=== PATIENT | male | born 1970 | race Hispanic/Latino ===

== ENCOUNTER 2017-10-27 10:38 | Emergency (ER) | payer MEDICARE, OTHER ==
[2017-10-27 10:39] VITALS: BMI 44.1
[2017-10-27 11:13] VITALS: BP 136/84; PULSE 75; RESP 16; TEMP 96.8; O2SAT 98
--- NOTE | 2017-10-27 11:59 | ED PDOC ---
Upper Extremity Pain/Injury Time Seen by Provider: 10/27/17 11:33 Chief Complaint (Nursing): Upper Extremity Problem/Injury Chief Complaint (Provider): Upper Extremity Problem/Injury History Per: Patient History/Exam Limitations: no limitations Onset/Duration Of Symptoms: Days Current Symptoms Are (Timing): Still Present Additional Complaint(s): Ruben is a 47 year old male who presents to the emergency department with right shoulder pain s/p slip and fall in the bathtub last night. Patient denies head injury, loss of consciousness or neck pain. PMD: Provider TBD Past Medical History Reviewed: Historical Data, Nursing Documentation, Vital Signs Vital Signs: Last Vital Signs Temp 96.8 F L 10/27/17 11:13 Pulse 75 10/27/17 11:13 Resp 16 10/27/17 11:13 BP 136/84 10/27/17 11:13 Pulse Ox 98 10/27/17 11:13 - Medical History PMH: Arthritis, Bipolar Disorder, CAD, Depression, Diabetes (type II), HTN, Hypercholesterolemia, Kidney Stones, Chronic Kidney Disease Denies: CHF, HIV - Surgical History Surgical History: Coronary Stent (x 1 stent 2008), Hernia Repair (x 2) - Family History Family History: States: Unknown Family Hx - Home Medications Home Medications: Ambulatory Orders Medication Instructions Recorded Albuterol HFA [Ventolin HFA 90 2 puff PO Q4 PRN 06/24/16 mcg/actuation (8 g)] Atorvastatin Calcium 80 mg PO HS 06/24/16 GlipiZIDE [Glucotrol] 10 mg PO BID 06/24/16 Isosorbide Mononitrate ER [Imdur 30 mg PO DAILY 06/24/16 ER] Metformin HCl [Glucophage] 1,000 mg PO BID 06/24/16 Metoprolol Succinate 100 mg PO DAILY 06/24/16 Montelukast [Singulair] 10 mg PO DAILY 06/24/16 Nitroglycerin [Nitrostat] 0.4 mg PO Q5MIN PRN 06/24/16 Pioglitazone [Actos] 30 mg PO DAILY 06/24/16 Pregabalin [Lyrica] 50 mg PO DAILY 06/24/16 Quetiapine Fumarate [Seroquel] 400 mg PO HS 06/24/16 SITagliptin [Januvia] 100 mg PO DAILY 06/24/16 Enalapril Maleate [Vasotec] 20 mg PO BID 06/25/16 Baclofen [Lioresal] 20 mg PO BID 08/29/16 Cholecalciferol [Vitamin D 1000 IU] 1,000 unit PO DAILY 08/29/16 Meloxicam [Mobic] 15 mg PO QPM 08/29/16 Nystatin [Nystop Topical Powder] 1 appl TOP DAILY 08/29/16 Potassium Gluconate 1 tab PO DAILY 08/29/16 Pregabalin [Lyrica] 100 mg PO HS 08/29/16 Tamsulosin [Flomax] 0.4 mg PO DAILY 08/29/16 amLODIPine [Norvasc] 10 mg PO DAILY 08/29/16 busPIRone [Buspar] 5 mg PO TID 08/29/16 hydrOXYzine Pamoate [Vistaril] 50 mg PO HS PRN 08/29/16 hydroCHLOROthiazide [Hydrodiuril] 25 mg PO DAILY 08/29/16 Albuterol HFA [Ventolin HFA 90 1 - 2 puff IH Q6 PRN #1 inhaler 10/04/16 mcg/actuation (8 g)] Methylprednisolone [Medrol Dosepak] 4 mg PO ASDIR #1 pkg 10/04/16 Promethazine HCl/Codeine 5 - 10 ml PO Q6 PRN #6 oz 10/04/16 [Prometh-Codein 6.25-10 mg/5 ml] levoFLOXacin [Levaquin] 500 mg PO DAILY #10 tab 10/04/16 Ibuprofen [Motrin] 600 mg PO Q6H PRN #20 tab 10/27/17 - Allergies Allergies/Adverse Reactions: Allergies Allergy/AdvReac Type Severity Reaction Status Date / Time No Known Allergies Allergy Verified 08/24/15 09:15 Review of Systems ROS Statement: Except As Marked, All Systems Reviewed And Found Negative Musculoskeletal: Positive for: Other (Right Shoulder Pain). Negative for: Neck Pain Neurological: Negative for: Other (Loss of consciousness) Physical Exam - Reviewed Nursing Documentation Reviewed: Yes Vital Signs Reviewed: Yes - Physical Exam Appears: Positive for: Non-toxic, No Acute Distress Head Exam: Positive for: ATRAUMATIC, NORMAL INSPECTION, NORMOCEPHALIC Skin: Positive for: Normal Color Eye Exam: Positive for: Normal appearance ENT: Positive for: Normal ENT Inspection Neck: Positive for: Normal Cardiovascular/Chest: Positive for: Regular Rate, Rhythm Respiratory: Positive for: Normal Breath Sounds (Lungs clear). Negative for: Respiratory Distress Pulses-Radial (R): 2+ Back: Negative for: Other (C-Spine Tenderness) Extremity: Positive for: Tenderness (Right Lateral Clavicle and anterior and superior right shoulder). Negative for: Normal ROM ((+): Decreased ROM secondary to pain), Deformity Neurologic/Psych: Positive for: Alert, Oriented (x 3), Other (Sensations intact , muscle strength 5/5) - ECG O2 Sat by Pulse Oximetry: 98 (RA) Pulse Ox Interpretation: Normal Medical Decision Making Medical Decision Making: Time: 11:49 Plan: - Ultram 50 mg PO STAT - Right Clavicle X-Ray - Right Shoulder X-Ray Accession No. : [id number] Patient Name / ID : WANDA KHAN V / [id number] Exam Date : 10/27/2017 12:13:32 ( Approved ) Study Comment : Sex / Age : M / 47Y Creator : Hoang Smith MD Dictator : Hoang Smith MD Harvest Field Ticketer : Groundskeeper Supervisor : Hoang Smith MD Approver2 : Report Date : 10/27/2017 13:58:43 My Comment : PROCEDURE: Radiographs of the right clavicle. HISTORY: Fall COMPARISON: None. FINDINGS: RIGHT CLAVICLE: No fracture or focal lesion. JOINTS: Right acromioclavicular and glenohumeral joints are grossly unremarkable. SOFT TISSUES: Grossly unremarkable. OTHER FINDINGS: None. IMPRESSION: Normal radiographs of the right clavicle. Concordant results with the preliminary interpretation rendered by the emergency department physician\PA at the conclusion of the procedure. Accession No. : [id number] Patient Name / ID : WANDA KHAN V / [id number] Exam Date : 10/27/2017 12:13:32 ( Approved ) Study Comment : Sex / Age : M / 47Y Creator : Hoang Smith MD Dictator : Hoang Smith MD Harvest Field Ticketer : Groundskeeper Supervisor : Hoang Smith MD Approver2 : Report Date : 10/27/2017 13:59:07 My Comment : PROCEDURE: Radiographs of the Right Shoulder HISTORY: Fall COMPARISON: No prior. FINDINGS: BONES: Normal. No fracture. JOINTS: Normal. Glenohumeral and acromioclavicular joints preserved. No osteoarthritis. SOFT TISSUES: Normal. OTHER FINDINGS: None. IMPRESSION: Normal radiographs of the right shoulder. Concordant results with the preliminary interpretation rendered by the emergency department physician\PA at the conclusion of the procedure. Scribe Attestation: Documented by Jaime Flores, acting as a scribe for Mica Wilde MD. Provider Scribe Attestation: All medical record entries made by the Scribe were at my direction and personally dictated by me. I have reviewed the chart and agree that the record accurately reflects my personal performance of the history, physical exam, medical decision making, and the department course for this patient. I have also personally directed, reviewed, and agree with the discharge instructions and disposition. Disposition - Clinical Impression Clinical Impression: Shoulder contusion - Disposition Disposition: Routine/Home Disposition Time: 13:57 Condition: STABLE Additional Instructions: FOLLOW-UP WITH PMD WITHIN 2 DAYS FOR REEVALUATION. Prescriptions: Ibuprofen [Motrin] 600 mg PO Q6H PRN #20 tab PRN Reason: Pain, Moderate (4-7) Instructions: Shoulder Pain (ED) Forms: [facility] (Serbian)
--- NOTE | 2017-10-27 14:00 | RAD ---
PROCEDURE: Radiographs of the right clavicle. HISTORY: Fall COMPARISON: None. FINDINGS: RIGHT CLAVICLE: No fracture or focal lesion. JOINTS: Right acromioclavicular and glenohumeral joints are grossly unremarkable. SOFT TISSUES: Grossly unremarkable. OTHER FINDINGS: None. IMPRESSION: Normal radiographs of the right clavicle. Concordant results with the preliminary interpretation rendered by the emergency department physician procedure.
--- NOTE | 2017-10-27 14:00 | RAD ---
PROCEDURE: Radiographs of the Right Shoulder HISTORY: Fall COMPARISON: No prior. FINDINGS: BONES: Normal. No fracture. JOINTS: Normal. Glenohumeral and acromioclavicular joints preserved. No osteoarthritis. SOFT TISSUES: Normal. OTHER FINDINGS: None. IMPRESSION: Normal radiographs of the right shoulder. Concordant results with the preliminary interpretation rendered by the emergency department physician procedure.
[2017-10-27] MEDS ORDERED: Absorbable Gelatin Sponge Size 12-7 ONE (18:03)
== END 2017-10-27 14:11 | disposition home or self-care (01) ==
LOC: H.ER 10:38
DX: S40.012A Contusion of left shoulder, initial encounter (principal); W19.XXXA Unspecified fall, initial encounter; Y92.002 Bathroom of unspecified non-institutional (private) residence as the place of occurrence of the external cause; E11.22 Type 2 diabetes mellitus with diabetic chronic kidney disease; Z79.84 Long term (current) use of oral hypoglycemic drugs

== ENCOUNTER 2017-12-19 02:58 | Observation (INO) | payer MEDICARE, OTHER ==
[2017-12-19 02:58] VITALS: BMI 44.1
[2017-12-19 04:21] LABS: BASO # 0.1 K/uL (0.0-0.2); BASO % 1.4 % (0.0-2.0); EOS # 0.2 K/uL (0.0-0.7); EOS % 3.4 % (0.0-4.0); HEMOGLOBIN 14.5 g/dL (12.0-18.0); LYMPH # 1.7 K/uL (1.0-4.3); LYMPH % 25.1 % (20.0-40.0); MEAN CELL VOLUME 88.9 fl (80.0-94.0); MEAN CORPUSCULAR HEMOGLOBIN 31.4 pg (27.0-31.0); MEAN CORPUSCULAR HGB CONC 35.4 g/dL (33.0-37.0); MEAN PLATELET VOLUME 8.4 fl (7.2-11.7); MONO # 0.5 K/uL (0.0-0.8); MONO % 7.6 % (0.0-10.0); NEUT # 4.3 K/uL (1.8-7.0); NEUT % 62.5 % (50.0-75.0); NRBC % 0.1 % (0.0-0.0); RBC 4.61 Mil/uL (4.40-5.90); RED CELL DISTRIBUTION WIDTH 16.4 % (11.5-14.5); WHITE BLOOD COUNT 6.8 K/uL (4.8-10.8)
[2017-12-19 04:32] LABS: BLOOD UREA NITROGEN 17 mg/dl (9-20); CALCIUM 8.9 mg/dL (8.4-10.2); GFR AFRICAN-AMERICAN > 60; GFR NON-AFRICAN AMERICAN > 60
--- NOTE | 2017-12-19 04:59 | ED PDOC ---
HPI: General Adult Time Seen by Provider: 12/19/17 03:25 Chief Complaint (Nursing): Chest Pain Chief Complaint (Provider): chest pain and abdominal pain History Per: Patient History/Exam Limitations: no limitations Onset/Duration Of Symptoms: Days (couple) Current Symptoms Are (Timing): Constant Additional Complaint(s): 47 year old male presents to the ED complaining of chest pain and abdominal pain onset couple of days ago. Reports he has constant right lower quadrant pain and right lower back pain and felt no relief with Advil or Tylenol. He walked to the ED and felt chest pain but it resolved after rest. Still has right lower abdominal pain and back pain. Denies fever or diarrhea. ASA given in the field by EMS> PMD: Provider TBD Past Medical History Reviewed: Historical Data, Nursing Documentation, Vital Signs Vital Signs: Last Vital Signs Temp 97.7 F 12/19/17 07:38 Pulse 87 12/19/17 07:38 Resp 16 12/19/17 07:38 BP 128/71 12/19/17 07:38 Pulse Ox 100 12/19/17 07:38 - Medical History PMH: Arthritis, Bipolar Disorder, CAD, Depression, Diabetes (type II), HTN, Hypercholesterolemia, Kidney Stones, Chronic Kidney Disease Denies: CHF, HIV - Surgical History Surgical History: Coronary Stent (x 1 stent 2008), Hernia Repair (x 2) - Family History Family History: States: Unknown Family Hx - Home Medications Home Medications: Ambulatory Orders Medication Instructions Recorded Allopurinol [Zyloprim] 100 mg PO DAILY 12/19/17 Atorvastatin [Lipitor] 80 mg PO HS 12/19/17 Canagliflozin [Invokana] 100 mg PO DAILY 12/19/17 Enalapril Maleate [Vasotec] 20 mg PO BID 12/19/17 Glipizide [Glucotrol] 10 mg PO BID 12/19/17 Isosorbide Mononitrate ER [Imdur 0.5 mg PO DAILY 12/19/17 ER] Metformin HCl [Glucophage] 1,000 mg PO BID 12/19/17 Metoprolol Succinate [Toprol Xl] 100 mg PO DAILY 12/19/17 Pioglitazone [Actos] 30 mg PO DAILY 12/19/17 Potassium Citrate [Urocit-K ER Tab] 2 tab PO TID 12/19/17 Pregabalin [Lyrica] 50 mg PO DAILY 12/19/17 Pregabalin [Lyrica] 100 mg PO HS 12/19/17 Quetiapine Fumarate [Seroquel] 300 mg PO HS 12/19/17 SITagliptin [Januvia] 100 mg PO DAILY 12/19/17 Tamsulosin HCl [Flomax] 0.4 mg PO DAILY 12/19/17 amLODIPine [Norvasc] 10 mg PO DAILY 12/19/17 busPIRone [Buspar] 5 mg PO TID 12/19/17 hydroCHLOROthiazide [Hydrodiuril] 25 mg PO DAILY 12/19/17 - Allergies Allergies/Adverse Reactions: Allergies Allergy/AdvReac Type Severity Reaction Status Date / Time No Known Allergies Allergy Verified 12/19/17 03:08 Review of Systems ROS Statement: Except As Marked, All Systems Reviewed And Found Negative Constitutional: Negative for: Fever Cardiovascular: Positive for: Chest Pain Gastrointestinal: Positive for: Abdominal Pain (right lower quadrant). Negative for: Diarrhea Musculoskeletal: Positive for: Back Pain (right lower) Physical Exam - Reviewed Nursing Documentation Reviewed: Yes Vital Signs Reviewed: Yes - Physical Exam Appears: Positive for: Well, Non-toxic, No Acute Distress Head Exam: Positive for: ATRAUMATIC, NORMAL INSPECTION, NORMOCEPHALIC Skin: Positive for: Normal Color, Warm, Dry Eye Exam: Positive for: EOMI, Normal appearance, PERRL ENT: Positive for: Normal ENT Inspection Neck: Positive for: Normal, Painless ROM, Supple. Negative for: Decreased ROM Cardiovascular/Chest: Positive for: Regular Rate, Rhythm. Negative for: Murmur Respiratory: Positive for: Normal Breath Sounds. Negative for: Decreased Breath Sounds, Accessory Muscle Use, Respiratory Distress Gastrointestinal/Abdominal: Positive for: Soft, Tenderness (right lower quadrant ) Extremity: Positive for: Tenderness (right leg), Other (right lower back pain) Neurologic/Psych: Positive for: Alert, Oriented (x3). Negative for: Motor/ Sensory Deficits - Laboratory Results Result Diagrams: 12/19/17 04:18 12/19/17 04:18 - ECG ECG: Positive for: Interpreted By Me, Viewed By Me ECG Rhythm: Positive for: Normal QRS, Normal ST Segment, Sinus Rhythm. Negative for: ST/T Changes Rate: 87 O2 Sat by Pulse Oximetry: 96 (RA) Pulse Ox Interpretation: Normal Medical Decision Making Medical Decision Making: Time: 358 Initial Impression: Abdominal pain, Back pain, Chest pain Differential Diagnosis includes but is not limited to: Appendicitis, Kidney stone, Lumbar arthropathy, Acute coronary syndrome Initial Plan: --Abdomen & Pelvis CT --EKG --BMP --Troponin I --CBC w/ differential --Glucose, POC --Flexeril 10mg PO --Toradol 30mg --cash register repairer --Reevaluation Time: 613 EXAM: CT Abdomen and Pelvis With Intravenous Contrast FINDINGS: Limitations: Lack of intravenous contrast. Lung bases: Unremarkable. No mass. No consolidation. Heart: Small pericardial effusion, stable. Mild coronary artery calcifications. ABDOMEN: Liver: Fatty infiltration. Gallbladder and bile ducts: No calcified stones. No ductal dilation. Pancreas: No ductal dilation. No mass. Spleen: No splenomegaly. Adrenals: No mass. Kidneys and ureters: Mild stranding about kidneys, nonspecific. Few too small to characterize lesions within kidneys. No hydronephrosis. Stomach and bowel: Gastric banding. No definite mural thickening. No obstruction. Appendix: Normal caliber. No inflammation. PELVIS: Bladder: Unremarkable. Reproductive: Unremarkable as visualized. ABDOMEN and PELVIS: Intraperitoneal space: No significant fluid collection. No free air. Bones/joints: Chronic L5 pars defects with anterolisthesis. Degenerative changes of spine. No acute fracture. Soft tissues: Small LEFT inguinal hernia containing fat. Tiny umbilical hernia containing fat. Small paraumbilical hernia containing fat. Vasculature: Unremarkable. No aneurysm. Lymph nodes: No pathologically enlarged lymph nodes. IMPRESSION: 1. No definite acute intraabdominal abnormality. 2. Incidental/non-acute findings are described above. Scribe Attestation: Documented by Obed Carranza, acting as a scribe for Lana Espana MD Provider Scribe Attestation: All medical record entries made by the Scribe were at my direction and personally dictated by me. I have reviewed the chart and agree that the record accurately reflects my personal performance of the history, physical exam, medical decision making, and the department course for this patient. I have also personally directed, reviewed, and agree with the discharge instructions and disposition. Disposition - Clinical Impression Clinical Impression: Chest pain, Abdominal pain - Patient ED Disposition Is Patient to be Admitted: Yes Discussed With DrBibi: Geovanni Lino Doctor Will See Patient In The: Hospital Counseled Patient/Family Regarding: Studies Performed, Diagnosis - Disposition Disposition Time: 06:30 Condition: FAIR - Pt Status Changed To: Hospital Disposition Of: Observation - POA Present On Arrival: Poor Glycemic Control DANIELLE Risk Score for UA/NSTEMI - DANIELLE Risk Score Age > 64: NO 3 or more CAD Risk Factors: YES Known CAD (Stenosis greater than 50%): YES Aspirin use in past 7 days: NO Severe Angina: NO EKG ST changes greater than 0.5mm: NO Positive Cardiac Marker: NO DANIELLE Score: 2 % risk at 14 days of: all cause mortality, new or recurrent UT, or severe recurrent ischemia requiring urgen revascularization: 8%
[2017-12-19] MEDS ORDERED: Sodium Chloride 0.9% 100 ML ONE (05:11)
[2017-12-19] MEDS ORDERED: Iohexol 300 100 ML IJ ONE (05:11)
--- NOTE | 2017-12-19 06:15 | CT ---
EXAM: CT Abdomen and Pelvis With Intravenous Contrast CLINICAL HISTORY: 47 years old, male; Pain; Abdominal pain; Localized; Right lower quadrant (rlq); Prior surgery; Surgery date: 6+ months; Surgery type: Gastric surgery; Additional info: Rlq pain right flank pain TECHNIQUE: Axial computed tomography images of the abdomen and pelvis with intravenous contrast. All CT scans at this facility use one or more dose reduction techniques, viz.: automated exposure control; ma/kV adjustment per patient size (including targeted exams where dose is matched to indication; i.e. head); or iterative reconstruction technique. Coronal and sagittal reformatted images were created and reviewed. CONTRAST: 90 mL of [id number] administered intravenously. COMPARISON: CT - ABD PELVIS PO CONTRAST ONLY 2016-08-29 12:42 FINDINGS: Limitations: Lack of intravenous contrast. Lung bases: Unremarkable. No mass. No consolidation. Heart: Small pericardial effusion, stable. Mild coronary artery calcifications. ABDOMEN: Liver: Fatty infiltration. Gallbladder and bile ducts: No calcified stones. No ductal dilation. Pancreas: No ductal dilation. No mass. Spleen: No splenomegaly. Adrenals: No mass. Kidneys and ureters: Mild stranding about kidneys, nonspecific. Few too small to characterize lesions within kidneys. No hydronephrosis. Stomach and bowel: Gastric banding. No definite mural thickening. No obstruction. Appendix: Normal caliber. No inflammation. PELVIS: Bladder: Unremarkable. Reproductive: Unremarkable as visualized. ABDOMEN and PELVIS: Intraperitoneal space: No significant fluid collection. No free air. Bones/joints: Chronic L5 pars defects with anterolisthesis. Degenerative changes of spine. No acute fracture. Soft tissues: Small LEFT inguinal hernia containing fat. Tiny umbilical hernia containing fat. Small paraumbilical hernia containing fat. Vasculature: Unremarkable. No aneurysm. Lymph nodes: No pathologically enlarged lymph nodes. IMPRESSION: 1. No definite acute intraabdominal abnormality. 2. Incidental/non-acute findings are described above.
--- NOTE | 2017-12-19 14:24 | CP.PCM.HP ---
History of Present Illness - History of Present Illness History of Present Illness: This is a 47 y/o male with hx of HTN , hyperlipidemia , uncontrolled DM 2, obesity and CAD with stent placed in 2008, was admitted due to chest pain for the past few days which has worsened yesterday. He claims that in ned past few days he had been having on and off abdominal pains. He claims to have associated mild SOB, Has no fever Has no vomiting or diarrhea. Has no dizziness Medical Hx DM 2 HTn CAD hyperlipidemia bipolar disorder obesity he is currently on a lot of medications. Present on Admission - Present on Admission Any Indicators Present on Admission: No History of DVT/PE: No History of Uncontrolled Diabetes: Yes Urinary Catheter: No Decubitus Ulcer Present: No Review of Systems - Cardiovascular Cardiovascular: Chest Pain - Gastrointestinal Gastrointestinal: Abdominal Pain - Endocrine Endocrine: Polydipsia, Polyphagia, Polyuria Past Patient History - Infectious Disease Hx of Infectious Diseases: None - Past Medical History & Family History Past Medical History?: Yes - Past Social History Smoking Status: Never Smoked - CARDIAC Hx Congestive Heart Failure: No Hx Hypercholesterolemia: Yes Hx Hypertension: Yes - PULMONARY Hx Respiratory Disorders: No - NEUROLOGICAL Hx Neurological Disorder: No - HEENT Hx HEENT Problems: No - RENAL Hx Chronic Kidney Disease: Yes Hx Kidney Stones: Yes - ENDOCRINE/METABOLIC Hx Endocrine Disorders: Yes Hx Diabetes Mellitus Type 2: Yes - HEMATOLOGICAL/ONCOLOGICAL Hx Human Immunodeficiency Virus (HIV): No - INTEGUMENTARY Hx Dermatological Problems: No - MUSCULOSKELETAL/RHEUMATOLOGICAL Hx Arthritis: Yes - GASTROINTESTINAL Hx Gastrointestinal Disorders: No - GENITOURINARY/GYNECOLOGICAL Hx Genitourinary Disorders: No - PSYCHIATRIC Hx Bipolar Disorder: Yes Hx Depression: Yes - SURGICAL HISTORY Hx Coronary Stent: Yes (x 1 stent 2008) - ANESTHESIA Hx Anesthesia: Yes Hx Anesthesia Reactions: No Hx Malignant Hyperthermia: No Meds Allergies/Adverse Reactions: Allergies Allergy/AdvReac Type Severity Reaction Status Date / Time No Known Allergies Allergy Verified 12/19/17 03:08 Physical Exam - Head Exam Head Exam: NORMAL INSPECTION - ENT Exam ENT Exam: Mucous Membranes Moist - Respiratory Exam Respiratory Exam: Clear to Auscultation Bilateral - Cardiovascular Exam Cardiovascular Exam: REGULAR RHYTHM - GI/Abdominal Exam GI & Abdominal Exam: Soft, Tenderness - Neurological Exam Neurological exam: CN II-XII Intact, Oriented x3 Results - Vital Signs Recent Vital Signs: Last Vital Signs Temp 97.7 F 12/19/17 07:38 Pulse 87 12/19/17 14:01 Resp 16 12/19/17 07:38 BP 128/71 12/19/17 07:38 Pulse Ox 96 12/19/17 14:01 - Labs Result Diagrams: 12/19/17 04:18 12/19/17 04:18 Labs: Laboratory Results - last 24 hr 12/19/17 12/19/17 12/19/17 04:11 04:18 04:18 WBC 6.8 RBC 4.61 Hgb 14.5 Hct 40.9 MCV 88.9 D MCH 31.4 H MCHC 35.4 RDW 16.4 H Plt Count 209 MPV 8.4 Neut % (Auto) 62.5 Lymph % (Auto) 25.1 [place] % (Auto) 7.6 Eos % (Auto) 3.4 Baso % (Auto) 1.4 Neut # (Auto) 4.3 Lymph # (Auto) 1.7 [place] # (Auto) 0.5 Eos # (Auto) 0.2 Baso # (Auto) 0.1 Sodium 141 Potassium 4.0 Chloride 104 Carbon Dioxide 22 Anion Gap 19 BUN 17 Creatinine 1.2 Est GFR ( Amer) > 60 Est GFR (Non-Af Amer) > 60 POC Glucose (mg/dL) 334 H Random Glucose 334 H Calcium 8.9 Troponin I < 0.0120 12/19/17 08:26 WBC RBC Hgb Hct MCV MCH MCHC RDW Plt Count MPV Neut % (Auto) Lymph % (Auto) [place] % (Auto) Eos % (Auto) Baso % (Auto) Neut # (Auto) Lymph # (Auto) [place] # (Auto) Eos # (Auto) Baso # (Auto) Sodium Potassium Chloride Carbon Dioxide Anion Gap BUN Creatinine Est GFR ( Amer) Est GFR (Non-Af Amer) POC Glucose (mg/dL) 212 H Random Glucose Calcium Troponin I Assessment & Plan (1) Chest pain Status: Acute (2) Gastritis and duodenitis Status: Acute (3) Bipolar disorder Status: Chronic (4) Hypertension Status: Chronic (5) Morbid obesity Status: Chronic (6) Non-insulin dependent type 2 diabetes mellitus Status: Chronic - Assessment and Plan (Free Text) Plan: troponon q 8 cardiology eval check echo protonix cont all po meds but Dc thiazide and pioglitazone check labs check lipids tsh in am. Had a recent a1c which was more than 9.
[2017-12-19] MEDS ORDERED: Dextrose 50% SYRINGE Inj (50 ml) IV PRN (14:33)
[2017-12-19] MEDS ORDERED: Glucagon Recombinant 1 mg Inj IM PRN (14:33)
[2017-12-19 17:07] LABS: INR 1.1 (0.9-1.2); PROTHROMBIN TIME 12.4 Seconds (9.8-13.1)
[2017-12-19] MEDS: Pantoprazole 40 mg EC Tab PO SCH (17:16)
[2017-12-19 17:20] LABS: BARBITURATES, UR NEGATIVE (NEGATIVE); BENZODIAZEPINES, UR NEGATIVE (NEGATIVE); OPIATES, UR NEGATIVE (NEGATIVE); PHENCYCLIDINE, UR NEGATIVE (NEGATIVE)
--- NOTE | 2017-12-19 18:59 | CARD ---
APPROVED REPORT EXAM: Two-dimensional and M-mode echocardiogram with Doppler and color Doppler. Other Information Quality : AverageRhythm : NSR INDICATION Chest Pain 2D DIMENSIONS IVSd1.74 (0.7-1.1cm)LVDd3.54 (3.9-5.9cm) LVOT Diameter2.02 (1.8-2.4cm)PWd1.26 (0.7-1.1cm) IVSs1.85 (0.8-1.2cm)LVDs2.91 (2.5-4.0cm) FS (%) 17.8 %PWs1.53 (0.8-1.2cm) LVEF (%)55.0 (>50%) M-Mode DIMENSIONS Left Atrium (MM)4.00 (2.5-4.0cm)IVSd1.49 (0.7-1.1cm) Aortic Root2.68 (2.2-3.7cm)LVDd4.57 (4.0-5.6cm) Aortic Cusp Exc.1.92 (1.5-2.0cm)PWd1.36 (0.7-1.1cm) IVSs1.99 cmFS (%) 49 % LVDs2.32 (2.0-3.8cm)PWs1.85 cm Mitral Valve MV E Kdpxvqkl24.2cm/sMV DECEL [id number] A Awyxzwuu42.0cm/s MV GQN85btY/A ratio1.1MVA (PHT)3.55cm2 TDI E/Lateral E'0.0E/Medial E'0.0 Pulmonary Valve PV Peak Xpwdbrze468.1cm/s LEFT VENTRICLE The left ventricle is normal size. There is mild to moderate concentric left ventricular hypertrophy. The left ventricular function is normal. The left ventricular ejection fraction is within the normal range. There is normal LV segmental wall motion. Transmitral Doppler flow pattern is Grade I-abnormal relaxation pattern. RIGHT VENTRICLE The right ventricle is normal size. There is normal right ventricular wall thickness. The right ventricular systolic function is normal. ATRIA The left atrium size is normal. The right atrium size is normal. AORTIC VALVE The aortic valve is not well visualized. No aortic regurgitation is present. There is no aortic valvular stenosis. MITRAL VALVE The mitral valve is not well visualized. There is no mitral valve stenosis. There is no mitral valve regurgitation noted. TRICUSPID VALVE The tricuspid valve is normal in structure. There is no tricuspid valve regurgitation noted. PULMONIC VALVE The pulmonary valve is normal in structure. There is no pulmonic valvular regurgitation. GREAT VESSELS The aortic root is normal in size. The IVC was not visualized. PERICARDIAL EFFUSION The pericardium appears normal. <Conclusion> Poor Echo window There is mild to moderate concentric left ventricular hypertrophy. The left ventricular function is normal. The left ventricular ejection fraction is within the normal range. There is normal LV segmental wall motion. Transmitral Doppler flow pattern is Grade I-abnormal relaxation pattern.
--- NOTE | 2017-12-19 20:25 | CARD ---
APPROVED REPORT EKG Measurement Heart [id number] FL [id number] <Conclusion> Sinus tachycardia Possible Left atrial enlargement Right superior axis deviation Abnormal ECG
--- NOTE | 2017-12-20 00:13 | CON ---
DATE: CARDIOLOGY CONSULTATION REASON FOR CONSULTATION: Chest pain. HISTORY OF PRESENT ILLNESS: The patient is a 47-year-old male, who has a history of hypertension, diabetes mellitus, has a history of coronary artery disease underwent coronary stenting in [facility] in 2008, presents because of chest discomfort. The patient describe his chest pain has tightness, nonradiating. The patient also reported to the Emergency Room team of abdominal pain prior to his chest discomfort involving the right lower quadrant with right lower back pain. The patient's chest pain resolved after rest and the lower abdominal pain and back pain continued. The patient denies any fever or chills. The patient denies any vomiting or diarrhea. MEDICATIONS: BuSpar 5 mg three times day, Cozaar 50 mg once a day, Glucophage 1 g twice a day, glipizide 10 mg twice a day, Januvia 100 mg daily, Lipitor 80 mg once a day, Norvasc 10 mg once a day, Seroquel 300 mg once a day, Toprol XL 100 mg once a day. PHYSICAL EXAMINATION: GENERAL: The patient is a middle age male who does not appeared to be in acute distress. VITAL SIGNS: Blood pressure 148/68, heart rate 90, temperature 98.2, respirations 18. HEENT: Normocephalic. CHEST: Clear. HEART: S1 and S2 regular. ABDOMEN: Soft. EXTREMITIES: No edema. LABORATORY DATA: SMA-7 is within normal limits except for glucose of 334. One set of troponin is negative. CBC; WBC 6.8, hemoglobin 14.5, hematocrit 40.9, platelet count 109,000. EKG revealed sinus tachycardia 315, right superior axis deviation, left atrial enlargement. Abdomen and pelvis CT scan, which revealed no definite acute intracranial abnormality. ASSESSMENT: 1. Chest pain rule out myocardial infarction. 2. History of coronary stenting in 2008 at [facility]. 3. Hypertension and diabetes mellitus. 4. Hyperlipidemia. RECOMMENDATIONS: Continue current Cozaar 50 mg once a day, glipizide 10 mg once a day, Lipitor at 80 mg once a day, Norvasc 10 mg once a day, Toprol XL 100 mg once a day. Obtain repeat 12-lead EKG, serum D-dimer, PT, PTT, urine for drug screen, and scheduled the patient for an echocardiogram. Brodie Todd MD [facility] # [id number]
[2017-12-20 08:15] LABS: LDL CHOLESTEROL 69 mg/dL (0-129)
[2017-12-20 08:20] LABS: ALBUMIN 3.2 g/dL (3.5-5.0); ALT/SGPT 40 U/L (21-72); AST/SGOT 29 U/L (17-59); BLOOD UREA NITROGEN 23 mg/dl (9-20); CALCIUM 8.7 mg/dL (8.4-10.2); GFR AFRICAN-AMERICAN > 60; GFR NON-AFRICAN AMERICAN 50; HDL CHOLESTEROL 25 MG/DL (30-70)
[2017-12-20 08:34] VITALS: RESP 20; O2SAT 98
[2017-12-20] MEDS: Pantoprazole 40 mg EC Tab PO SCH (08:49)
[2017-12-20] MEDS ORDERED: Metoprolol Succinate 100 mg XL Tab PO SCH (09:00)
[2017-12-20 13:12] VITALS: BP 127/77; PULSE 68; TEMP 97.9
--- NOTE | 2017-12-20 15:37 | PN ---
DATE: SUBJECTIVE: The patient denies any chest pain or shortness of breath. PHYSICAL EXAMINATION: VITAL SIGNS: Blood pressure 143/80, heart rate 67, temperature 98.1, and respirations 20. HEENT: Normocephalic. CHEST: Clear. HEART: S1 and S2 regular. ABDOMEN: Soft. EXTREMITIES: No edema. LABORATORY DATA: Today's blood sugars are 148 and 205. Urine drug screen is negative. D-dimer is 251. Echocardiography study revealed normal left ventricular size with [id number] concentric LVH, normal segmental wall motion and grade 1 abnormal relaxation pattern. ASSESSMENT: 1. Chest pain, myocardial infarction is ruled out. 2. Sinus tachycardia on admission, rule out pulmonary infarction. 3. Bipolar disorder. 4. History of coronary artery disease, status post coronary artery stenting in 2008. RECOMMENDATIONS: Continue current BuSpar, Cozaar, glipizide, Lipitor, and Toprol-XL. Hold Glucophage. Obtain CT angio chest to rule out pulmonary embolus. Brodie Todd MD
--- NOTE | 2017-12-22 00:39 | CP.PCM.DIS ---
Provider - Provider Date of Admission: 12/19/17 06:27 Attending physician: Geovanni Lino MD Diagnosis - Discharge Diagnosis (1) Chest pain Status: Acute (2) Gastritis and duodenitis Status: Acute (3) Bipolar disorder Status: Chronic (4) Hypertension Status: Chronic (5) Morbid obesity Status: Chronic (6) Non-insulin dependent type 2 diabetes mellitus Status: Chronic Hospital Course - Lab Results Lab Results: Most Recent Lab Values WBC 6.8 K/uL (4.8-10.8) 12/19/17 04:18 RBC 4.61 Mil/uL (4.40-5.90) 12/19/17 04:18 Hgb 14.5 g/dL (12.0-18.0) 12/19/17 04:18 Hct 40.9 % (35.0-51.0) 12/19/17 04:18 MCV 88.9 fl (80.0-94.0) D 12/19/17 04:18 MCH 31.4 pg (27.0-31.0) H 12/19/17 04:18 MCHC 35.4 g/dL (33.0-37.0) 12/19/17 04:18 RDW 16.4 % (11.5-14.5) H 12/19/17 04:18 Plt Count 209 K/uL (130-400) 12/19/17 04:18 MPV 8.4 fl (7.2-11.7) 12/19/17 04:18 Neut % (Auto) 62.5 % (50.0-75.0) 12/19/17 04:18 Lymph % (Auto) 25.1 % (20.0-40.0) 12/19/17 04:18 [place] % (Auto) 7.6 % (0.0-10.0) 12/19/17 04:18 Eos % (Auto) 3.4 % (0.0-4.0) 12/19/17 04:18 Baso % (Auto) 1.4 % (0.0-2.0) 12/19/17 04:18 Neut # (Auto) 4.3 K/uL (1.8-7.0) 12/19/17 04:18 Lymph # (Auto) 1.7 K/uL (1.0-4.3) 12/19/17 04:18 Canadian # (Auto) 0.5 K/uL (0.0-0.8) 12/19/17 04:18 Eos # (Auto) 0.2 K/uL (0.0-0.7) 12/19/17 04:18 Baso # (Auto) 0.1 K/uL (0.0-0.2) 12/19/17 04:18 PT 12.4 Seconds (9.8-13.1) 12/19/17 16:11 INR 1.1 (0.9-1.2) 12/19/17 16:11 APTT 29.0 Seconds (25.6-37.1) 12/19/17 16:11 D-Dimer, Quantitative 251 ng/mlDDU (0-230) H 12/19/17 16:11 Sodium 144 mmol/l (132-148) 12/20/17 06:04 Potassium 3.3 MMOL/L (3.6-5.0) L 12/20/17 06:04 Chloride 105 mmol/L (98-107) 12/20/17 06:04 Carbon Dioxide 27 mmol/L (22-30) 12/20/17 06:04 Anion Gap 15 (10-20) 12/20/17 06:04 BUN 23 mg/dl (9-20) H 12/20/17 06:04 Creatinine 1.5 mg/dl (0.8-1.5) 12/20/17 06:04 Est GFR ( Amer) > 60 12/20/17 06:04 Est GFR (Non-Af Amer) 50 12/20/17 06:04 POC Glucose (mg/dL) 205 mg/dL (65-110) H 12/20/17 10:50 Random Glucose 76 mg/dL (75-110) 12/20/17 06:04 Hemoglobin A1c 8.2 % (4.2-6.5) H 12/20/17 06:04 Calcium 8.7 mg/dL (8.4-10.2) 12/20/17 06:04 Total Bilirubin 0.7 mg/dl (0.2-1.3) 12/20/17 06:04 AST 29 U/L (17-59) 12/20/17 06:04 ALT 40 U/L (21-72) 12/20/17 06:04 Alkaline Phosphatase 66 U/L (38-126) 12/20/17 06:04 Troponin I < 0.0120 ng/mL (0.00-0.120) 12/19/17 22:45 Total Protein 6.3 G/DL (6.3-8.2) 12/20/17 06:04 Albumin 3.2 g/dL (3.5-5.0) L 12/20/17 06:04 Globulin 3.1 gm/dL (2.2-3.9) 12/20/17 06:04 Albumin/Globulin Ratio 1.0 (1.0-2.1) 12/20/17 06:04 Triglycerides 116 mg/DL (0-149) 12/20/17 06:04 Cholesterol 118 mg/dL (0-199) 12/20/17 06:04 LDL Cholesterol Direct 69 mg/dL (0-129) 12/20/17 06:04 HDL Cholesterol 25 MG/DL (30-70) L 12/20/17 06:04 TSH 3rd Generation 1.84 mIU/ML (0.46-4.68) 12/19/17 15:30 Urine Opiates Screen Negative (NEGATIVE) 12/19/17 16:28 Urine Methadone Screen Negative (NEGATIVE) 12/19/17 16:28 Ur Barbiturates Screen Negative (NEGATIVE) 12/19/17 16:28 Ur Phencyclidine Scrn Negative (NEGATIVE) 12/19/17 16:28 Ur Amphetamines Screen Negative (NEGATIVE) 12/19/17 16:28 U Benzodiazepines Scrn Negative (NEGATIVE) 12/19/17 16:28 U Oth Cocaine Metabols Negative (NEGATIVE) 12/19/17 16:28 U Cannabinoids Screen Negative (NEGATIVE) 12/19/17 16:28 - Hospital Course Hospital Course: This is a 47 y/o male admitted for chest pain. Has a hx of DM 2 HTN hyperlipidemia . Discharge Exam - Head Exam Head Exam: NORMAL INSPECTION Discharge Plan - Follow Up Plan Condition: FAIR Disposition: HOME/ ROUTINE
== END 2017-12-20 16:00 | disposition home or self-care (01) ==
LOC: H.ER 02:58 → H.ERHOLD 06:27 → H.TEL 18:34
PROVIDERS: ADMIT Family Medicine; ATTEND Family Medicine
DX: R07.9 Chest pain, unspecified (principal); K29.70 Gastritis, unspecified, without bleeding; K29.80 Duodenitis without bleeding; F31.9 Bipolar disorder, unspecified; I12.9 Hypertensive chronic kidney disease with stage 1 through stage 4 chronic kidney disease, or unspecified chronic kidney disease; N18.9 Chronic kidney disease, unspecified; I25.10 Atherosclerotic heart disease of native coronary artery without angina pectoris; Z95.5 Presence of coronary angioplasty implant and graft; E11.22 Type 2 diabetes mellitus with diabetic chronic kidney disease; E66.01 Morbid (severe) obesity due to excess calories; Z68.41 Body mass index [BMI] 40.0-44.9, adult; E78.5 Hyperlipidemia, unspecified; M19.90 Unspecified osteoarthritis, unspecified site; E78.00 Pure hypercholesterolemia, unspecified; R00.0 Tachycardia, unspecified
CPT/HCPCS: 36415; 74177; 80048; 80053; 80061; 82948; 83036; 84443; 84484; 85025; 85378; 85610; 85730; 93005; 93306; 96374; 99285; G0378; G0480; J1885; Q9967